=== PATIENT | male | born 1955 | race Caucasian/White ===

== ENCOUNTER 2016-12-19 06:36 | Day surgery (SDC) | payer BC ==
[~2016-12-19] VITALS: Ht 172.7 cm; Wt 138.3 kg
[2016-12-19] MEDS ORDERED: CEFAZOLIN SOD 1 GM in D5W 50 ML IV ONE (07:00)
[2016-12-19 09:29] VITALS: TEMP 97.7; O2SAT 96
[2016-12-19] MEDS ORDERED: DEXAMETHASONE SOD PHOSPHATE 4 MG/ML VIAL IVP ONE (09:36)
[2016-12-19] MEDS ORDERED: METOCLOPRAMIDE HCL 10 MG/2 ML VIAL IVP ONE (09:36)
[2016-12-19] MEDS ORDERED: PROPOFOL 200MG/ 20ML VIAL (DIPRIVAN) IV ONE (09:36)
[2016-12-19] MEDS ORDERED: ROCURONIUM BROMIDE 10 MG/ML (ZEMURON) IV ONE (09:36)
[2016-12-19] MEDS ORDERED: SUCCINYLCHOLINE CHLORIDE 20 MG/ML(QUELICIN) IVP ONE (09:36)
[2016-12-19] MEDS ORDERED: MIDAZOLAM HCL 5 MG/5 ML VIAL IVP ONE (09:36)
[2016-12-19] MEDS ORDERED: KETOROLAC TROMETHAMINE 30 MG VIAL IVP ONE (09:36)
[2016-12-19] MEDS ORDERED: SEVOFLURANE 15 MIN GAS INH ONE (09:36)
[2016-12-19] MEDS ORDERED: fentaNYL CITRATE 250 MCG/5 ML AMP IV ONE (09:36)
[2016-12-19] MEDS ORDERED: LR 1,000 ML IV.SOLN IV ONE (09:36)
[2016-12-19] MEDS ORDERED: POLYMYXIN 500,000/BACIT.10,000 UNITS in NS IRR 1 L IR ONE (09:44)
[2016-12-19] MEDS ORDERED: LR 1,000 ML IV ONE (10:54)
[2016-12-19] MEDS ORDERED: ONDANSETRON HCL 4 MG/2 ML VIAL IVP PRN ×2 (11:00)
[2016-12-19] MEDS ORDERED: fentaNYL CITRATE/PF 100 MCG/2 ML AMP IVP PRN (11:00)
[2016-12-19] MEDS ORDERED: DIPHENHYDRAMINE INJ 50 MG/ML VIAL IVP PRN (11:00)
[2016-12-19] MEDS ORDERED: ePHEDrine sulfate 50 MG/ML VIAL IVP PRN (11:00)
[2016-12-19] MEDS ORDERED: NALBUPHINE HCL 10 MG/ML AMP IVP PRN (11:00)
[2016-12-19] MEDS ORDERED: NALOXONE HCL 0.4 MG/ML AMP (NARCAN) IVP PRN (11:00)
[2016-12-19] MEDS ORDERED: D5/0.45 NS 1,000 ML IV SCH (11:18)
[2016-12-19] MEDS ORDERED: HYDROmorphone 1 MG INJ. 1 MG/ML AMPUL IVP PRN (11:30)
[2016-12-19] MEDS ORDERED: HYDROcodone/ACETAMIN 5-325 MG TAB (NORCO/ VICODIN) PO PRN ×2 (11:30)
[2016-12-19 12:21] VITALS: BP 136/80; PULSE 83; RESP 16
== END 2016-12-19 13:25 | disposition home or self-care (01) ==
LOC: SDS 06:36 → SMU 06:37 → SDS 13:25
PROVIDERS: ATTEND Colon & Rectal Surgery
DX: K43.6 Other and unspecified ventral hernia with obstruction, without gangrene (principal); I10 Essential (primary) hypertension; G47.33 Obstructive sleep apnea (adult) (pediatric); E66.01 Morbid (severe) obesity due to excess calories; K43.2 Incisional hernia without obstruction or gangrene; Z82.5 Family history of asthma and other chronic lower respiratory diseases; Z81.8 Family history of other mental and behavioral disorders; Z80.8 Family history of malignant neoplasm of other organs or systems; E11.9 Type 2 diabetes mellitus without complications; J45.909 Unspecified asthma, uncomplicated; J44.9 Chronic obstructive pulmonary disease, unspecified; Z68.42 Body mass index [BMI] 45.0-49.9, adult; Z98.890 Other specified postprocedural states; M25.562 Pain in left knee; K75.9 Inflammatory liver disease, unspecified
CPT/HCPCS: 49561; 49568; 82962; 88302; C1781; J0330; J0690; J1100; J1885; J2250; J2704; J2765; J3010; J7060; J7120